=== PATIENT | female | born 1950 | race Caucasian/White ===

== ENCOUNTER 2019-08-30 22:43 | Inpatient (IN) | payer MEDICARE, SELFPAY ==
[~2019-08-30] VITALS: Ht 152.4 cm; Wt 119.8 kg
[2019-08-30 22:43] VITALS: BP 126/87
--- NOTE | 2019-08-30 22:43 | NUR ---
PT BIBA BLS. TAKEN TO BED 9
--- NOTE | 2019-08-30 22:55 | NUR ---
PROPER PPE WORN FOR ALL PT INTERACTION
--- NOTE | 2019-08-30 23:00 | NUR ---
69 YO F BIBA FOR FEVER AND COUGH X2 WEEKS. PT DENIES TAKING ANY MEDICATION FOR FEVER/COUGH. PT DENIES TRAVEL OR CONTACT WITH ANY COVID POSITIVE PATIENTS. DENIES SOB BUT HAS A PRODUCTIVE COUGH WITH YELLOW THICK SECRETIONS. LUNG SOUNDS CLEAR IN BILATERAL UPPER AND MIDDLE BASES, AND DIMINISHED IN BILATERAL LOWER BASES. PT WAS SATING AT 88-90% ON ROOM AIR. PT PLACED ON 3L NC AND IS NOW SATING AT 98%. S1S2 HEARD. BOWEL SOUNDS ARE NORMOACTIVE THROUGHOUT. PT STATES SHE HAS BEEN NAUSEOUS WITH APPETITE CHANGES BUT DENIES V/D. LBM WAS TODAY, SOFT AND FORMED. CAP REFILL <3. TRACE EDEMA IN BILATERAL LOWER EXTREMETIES. PT STATES THAT SHE HAS FELT WEAK LATELY AND HAS FALLEN 4 TIMES IN THE LAST MONTH. PT HAS HAD PAIN THAT COMES AND GOES IN BILATERAL LOWER EXTREMETIES DUE TO RECENT FALLS. PT PLACED ON EVENT CREW TECHNICIAN. SAFETY MEASURES IN PLACE. BED LOCKED AND IN LOWEST POSITION. SIDE RAILS X2. NKA MED HX: DM2, HYPOTHYROIDISM, GALLSTONES MEDS: LEVOTHYROXINE, METFORMIN
--- NOTE | 2019-08-30 23:17 | NUR ---
XR AT BEDSIDE
--- NOTE | 2019-08-30 23:37 | NUR ---
FLU, RSV, COVID SWAB COLLECTED BY BERNARDINO MENDES AND SENT TO LAB
--- NOTE | 2019-08-30 23:45 | NUR ---
EKG PERFORMED AT BEDSIDE.
[2019-08-30 23:49] LABS: APPEARANCE,URINE SL CLOUDY (CLEAR); BLOOD, URINE NEGATIVE (NEGATIVE); COLOR,URINE YELLOW (YELLOW); LEUKOCYTE ESTERASE ,URINE NEGATIVE (NEGATIVE); NITRITE, URINE NEGATIVE (NEGATIVE); UGLUCOSE NEGATIVE (NEGATIVE)
--- NOTE | 2019-08-30 23:50 | NUR ---
PT RESTING COMFORTABLY IN BED. EQUAL RISE AND FALL OF CHEST. CALL LIGHT PLACED AT BEDSIDE.
[2019-08-30 23:51] LABS: BASOPHILS % (AUTO) 0.3 % (0.0-2.0); HEMATOCRIT 35.4 % (36-48); HEMOGLOBIN 11.4 g/dL (12.0-16.0); LYMPHOCYTES # (AUTO) 0.9 K/uL (2.5-16.5); LYMPHOCYTES % (AUTO) 23.1 % (20.5-51.1); MEAN CORPUSCULAR HEMOGLOBIN 27 pg (27-31); MEAN CORPUSCULAR HGB CONC 32 g/dL (33-37); MEAN CORPUSCULAR VOLUME 82.7 fL (80-94); MONOCYTES # (AUTO) 0.2 K/uL (0.8-1.0); MONOCYTES % (AUTO) 5.1 % (1.7-9.3); NEUTROPHILS # (AUTO) 2.8 K/uL (1.8-7.7); NEUTROPHILS % (AUTO) 71.5 % (42.2-75.2); PLATELET COUNT (AUTO) 127 K/uL (140-450); RED BLOOD CELL COUNT(AUTO) 4.28 MIL/uL (4.20-5.40); RED CELL DISTRIBUTION WIDTH 15.8 % (11.6-13.7); WHITE BLOOD COUNT (AUTO) 3.9 K/uL (4.8-10.8)
--- NOTE | 2019-08-30 23:54 | NUR ---
RT AT BEDSIDE COLLECTING ABG
[2019-08-31 00:03] LABS: C-REACTIVE PROTEIN QUANT 2.6 mg/dL (0.0-0.9)
[2019-08-31 00:08] LABS: ALBUMIN 3.4 g/dL (3.4-5.0); ANION GAP 10.3 (8-16); CREATININE 0.9 mg/dL (0.6-1.3); POTASSIUM 3.3 mmol/L (3.5-5.1); TOTAL BILIRUBIN 0.8 mg/dL (0.0-1.0)
[2019-08-31 00:09] LABS: LACTATE DEHYDROGENASE 278 U/L (81-234)
[2019-08-31 00:23] LABS: PROTHROMBIN TIME 9.9 secs (10.8-13.4)
--- NOTE | 2019-08-31 00:27 | NUR ---
ERMD AT BEDSIDE EVALUATING PT
[2019-08-31 00:39] LABS: BILIRUBIN,URINE NEGATIVE (NEGATIVE)
--- NOTE | 2019-08-31 01:24 | NUR ---
PT TAKEN TO CT VIA DARIO WITH RICHI MORGAN AND RN
[2019-08-31 01:27] LABS: RSV NEGATIVE (NEGATIVE)
--- NOTE | 2019-08-31 01:43 | NUR ---
PT RETURN FROM CT
--- NOTE | 2019-08-31 02:38 | NUR ---
PT RESTING IN BED WITH EYES CLOSED. RESPONSIVE TO VERBAL STIMULI. RESPIRATIONS ARE EVEN AND UNLABORED. PT CONTIUES ON MONTIOR. SIDERAIL UP X 1. VSS. BED LOCKED AND IN LOWEST POSITION.
[2019-08-31] MEDS ORDERED: AZITHROMYCIN 500 MG in DEXTROSE 5% 250 ML IV ONE (03:10)
--- NOTE | 2019-08-31 03:10 | NUR ---
PTS NC CAME OFF AND PT O2 SAT DROPPED TO 80%-87%. WENT IN PTS ROOM AND PLACED NC BACK ON AND PT IS NOW SATING AT 97% ON ROOM AIR. PT HAS A FIT OF COUGHING BUT SAYS SHE FEELS OK. PTS FEVER HAS DROPPED FROM 100.6 AT HOME TO 98.7 CURRENTLY. PT CALM AND RESTING IN BED.
[2019-08-31] MEDS ORDERED: cefTRIAXone 1,000 MG VIAL ONE (03:12)
[2019-08-31] MEDS ORDERED: AZITHROMYCIN 500 MG INJ VIAL IV ONE (03:13)
--- NOTE | 2019-08-31 03:40 | NUR ---
RONEN SPOKE TO PTS LISA TO GIVE AN UPDATE. INFORMED THAT PT WILL BE ADMITTED TO [facility] AND NOT TRANSFERRED TO [place] UNTIL COVID 19 RESULTS COME BACK.
[2019-08-31] MEDS ORDERED: HYDROcodone/APAP 7.5/325 MG 1 TAB PO PRN (03:45)
[2019-08-31] MEDS ORDERED: ACETAMINOPHEN 325 MG TAB PO PRN (03:45)
[2019-08-31] MEDS ORDERED: LEVO0.2T5 PO (03:53)
[2019-08-31] MEDS ORDERED: METF-988 PO ×2 (03:53→04:54)
--- NOTE | 2019-08-31 04:00 | NUR ---
LISA PTS - [phone] WILL GIVE CONTACT INFORMATION TO TELE NURSE
[2019-08-31 04:20] VITALS: BP 110/60
--- NOTE | 2019-08-31 04:20 | NUR ---
RECEIVED PT AAOX4 , W/ O2 AT 2 LPM/NC - O2 SAT WNL , / DARIO . AMBULATES TO BED W/ ASSIST . IV SITE INTACT AND PATENT . SAFETY MEASURES IN PLACE . ADMISSION ASSESSMENT DONE , MRSA SPECIMEN SENT TO LAB . POC DISCUSSED AND VERBALIZE UNDERSTANDING - CALL LIGHT WITHIN REACH . ON TELE MONITOR. WILL CONT. TO MONITOR. Addendum: 08/31/19 at 0642 by Kellee Tovar RN PER RADIOLOGIST NO METFORMIN FOR [address] ANGIO CHEST DONE - ALEKSANDRA ALMEIDA
[2019-08-31 04:21] LABS: CHOL/HDL RATIO 2.9 (1-4.5); MAGNESIUM 1.8 mg/dL (1.8-2.4); THYROID STIMULATING HORMONE 7.7 uIU/mL (0.34-3.74)
--- NOTE | 2019-08-31 04:21 | NUR ---
Patient will be admitted to care of [facility]. Admited to TELE. Will go to room 114. Belongings list completed. Report to DOMINICK MENDES.
[2019-08-31] MEDS ORDERED: POTASSIUM CHLORIDE 10 MEQ TABER PO ONE ×2 (04:55→06:07)
[2019-08-31] MEDS ORDERED: DEXTROSE 50% 50 ML SYR IVP PRN (04:55)
[2019-08-31] MEDS: NACL 0.9% 1,000 ML IV SCH (05:00)
--- NOTE | 2019-08-31 06:22 | NUR ---
K DUR TABLETS GIVEN THE ORDER IS 40 MEQ , I GOT 4 TABS FROM [employer] BUT I FORGOT TO INDICATE 4 PIECES INSTEAD I PUT 1 TAB.
[2019-08-31] MEDS: LEVOTHYROXINE 0.1 MG TAB PO SCH (06:23)
--- NOTE | 2019-08-31 07:00 | NUR ---
MADE ROUNDS . NO S/S OF ACUTE DISTRESS NOTED AT THIS TIME. CALL LIGHT WITHIN REACH.
[2019-08-31 07:14] LABS: BASOPHILS % (AUTO) 0.1 % (0.0-2.0); HEMATOCRIT 32.8 % (36-48); HEMOGLOBIN 10.5 g/dL (12.0-16.0); LYMPHOCYTES # (AUTO) 1.2 K/uL (2.5-16.5); LYMPHOCYTES % (AUTO) 36.8 % (20.5-51.1); MEAN CORPUSCULAR HEMOGLOBIN 27 pg (27-31); MEAN CORPUSCULAR HGB CONC 32 g/dL (33-37); MONOCYTES # (AUTO) 0.2 K/uL (0.8-1.0); MONOCYTES % (AUTO) 5.2 % (1.7-9.3); NEUTROPHILS # (AUTO) 1.9 K/uL (1.8-7.7); NEUTROPHILS % (AUTO) 57.9 % (42.2-75.2); PLATELET COUNT (AUTO) 109 K/uL (140-450); RED CELL DISTRIBUTION WIDTH 15.7 % (11.6-13.7); WHITE BLOOD COUNT (AUTO) 3.3 K/uL (4.8-10.8)
--- NOTE | 2019-08-31 07:20 | NUR ---
ENDORSED TO AM SHIFT - PT - STABLE - ENDORSED TO AM SHIFT TO GET THE HGT.
--- NOTE | 2019-08-31 07:20 | NUR ---
RECEIVED REPORT FROM NIGHT NURSE. PATIENT IS AWAKE, ALERT AND ORIENTED X4. NO S/S OF DISTRESS NOTED. IV INTACT AND PATENT TO RIGHT AC. PLANS OF CARE DISCUSSED. O2 ON @ 3L VIA NC. CALL LIGHT WITHIN REACH. SAFETY MEASURES IN PLACE.
[2019-08-31 07:35] LABS: ANION GAP 9.5 (8-16); CARBON DIOXIDE 31.7 mmol/L (21-32); CREATININE 0.9 mg/dL (0.6-1.3); POTASSIUM 3.2 mmol/L (3.5-5.1)
[2019-08-31 08:00] VITALS: BP 122/50
[2019-08-31] MEDS: BLOOD GLUCOSE MONITORING 1 DEV DEV FS SCH ×4 (08:21→20:45)
[2019-08-31] MEDS: AZITHROMYCIN 250 MG TAB PO SCH (08:43)
[2019-08-31] MEDS: ZINC SULF 220 MG CAP PO SCH (08:43)
[2019-08-31] MEDS: ASCORBIC ACID 500 MG TAB PO SCH (08:44)
[2019-08-31] MEDS: FAMOTIDINE 20 MG TAB PO SCH (08:44)
[2019-08-31] MEDS: DOCUSATE SODIUM 100 MG GELCAP PO SCH ×2 (08:58→20:45)
[2019-08-31] MEDS: ENOXAPARIN 40 MG/0.4 ML SYR SUBQ SCH (08:58)
[2019-08-31] MEDS ORDERED: metFORMIN 500 MG TAB PO SCH (09:00)
--- NOTE | 2019-08-31 09:30 | NUR ---
PATIENT ALERT AND ORIENTED X4. NO DISTRESS NOTED. O2 ON 2 3L VIA NC. PT AMBULATORY WITH STEADY GAIT. CALL LIGHT WITHIN REACH.
[2019-08-31] MEDS ORDERED: POTASSIUM CHLORIDE 10 MEQ TABER PO SCH (10:00)
[2019-08-31] MEDS: ONDANSETRON 4 MG/2 ML VIAL IVP PRN ×2 (10:15→10:24)
--- NOTE | 2019-08-31 10:46 | NUR ---
DC PLANNIN YRS OLD FEMALE PATIENT WAS ADMITTED FROM HOME WITH A DX OF PNA, R/O COVID. PATIENT HAS A HX OF DM, HYPOTHYROID , MORBID OBESITY AND SEASONAL ALLERGIES. CXR WAS NEGATIVE FOR ACUTE PATHOLOGY ,CTA OF THE CHEST SHOWED MULTIPLE PUNCTATE GROUND GLASS INFILTRATE IN BILATERAL LOWER LUNGS . COVID TEST AND BLOOD CULTURE PENDING. INFLUENZA A&B NEGATIVE. ADMINISTERED IV ABX ROCEPHIN AND AZITHROMYCIN ,VIT C AND ZINC SUPPLEMENT,AND LOVENOX . CONSULTED WITH PULM/CRITICAL CARE DR ZARATE . DC PLAN FAXED ALL THE CLINICAL TO [facility]. REYNA TO FOLLOW Addendum: 08/31/19 at 1112 by Lyssa Miller CM DC PLANNING: CALLED [facility] [phone] SPOKE WITH GISELL ORELLANA ,NOTIFIED HER PT IS STABLE TO BE TRANSFERRED , PROVIDE HER RESIDENT'S CELL PHONE NUMBER AND PER GISELL SHE RECEIVED ALL THE CLINICALS AND AWARE OF COVID TEST PENDING. SHE WILL DISCUSS WITH TRAFFIC LINE PAINTER AND WILL CALL BACK . REYNA TO FOLLOW Addendum: 08/31/19 at 1326 by Lyssa Miller CM DC PLANNING: RECEIVED A CALL FROM GISELL ORELLANA AT [facility] [phone] STATED SHE SPOKE WITH THE TRAFFIC LINE PAINTER DR ABEL CAN NOT TAKE PATIENT WITH PENDING COVID AND WAITING FOR THE COVID RESULT. PER GISELL PANG WILL APPROVE THE DAY UNTIL WE GET THE COVID TEST RESULT. REYNA TO FOLLOW Addendum: 09/03/19 at 1057 by Lyssa Miller CM DC PLANNING: CALLED [facility] [phone] SPOKE WITH FRANCE ORELLANA UPDATED PT'S CLINICAL STATUS AND THE RESULT OF COVID-19 POSITIVE RESULT AND PT IS STABLE FOR TRANSFER. PER FRANCE SHE WILL WORK ON IT ON [facility] ,PROVIDED THE UNIT NUMBER AND 'S CELL PHONE FOR [facility] TO [facility]. FAXED COVID -19 TEST TO [phone] . REYNA TO FOLLOW
[2019-08-31 12:00] VITALS: BP 114/49
[2019-08-31] MEDS: INSULIN LISPRO SLIDING SCALE 100 UNITS/ML VIAL SUBQ PRN (12:43)
--- NOTE | 2019-08-31 13:00 | NUR ---
ROUNDS MADE. PATIENT ALERT AND ORIENTED X4. NO DISTRESS NOTED. O2 ON 2 3L VIA NC. PT AMBULATORY WITH STEADY GAIT. CALL LIGHT WITHIN REACH.
--- NOTE | 2019-08-31 14:30 | NUR ---
DR. JACOBO MADE AWARE, PATIENT'S RESULT FOR COVID TEST IS NEGATIVE. Addendum: 08/31/19 at 1531 by Renetta Mace RN INCORRECT NOTE ABOVE: PATIENT'S COVID TEST RESULT IS STILL PENDING.
[2019-08-31 16:00] VITALS: BP 136/60
--- NOTE | 2019-08-31 16:29 | NUR ---
08/31/19 RD INITIAL ASSESSMENT COMPLETED PLEASE REFER TO NUTRITION ASSESSMENT UNDER CARE ACTIVITY FOR ESTIMATED NUTRITIONAL NEEDS. 1. CONTINUE CCHO 60GM DIET TOLERATED 2. IF PO INTAKE <75% RECOMMEND GLUCERNA ONCE DAILY 3. RD TO FOLLOW-UP 3-5 DAYS, MODERATE RISK CELESTINA PANDEY, RD
--- NOTE | 2019-08-31 16:30 | NUR ---
PATIENT IS SITTING ON THE CHAIR. ALERT AND ORIENTED X4. DENIES ANY SOB OR DISCOMFORT. CALL LIGHT WITHIN REACH. ABLE TO MAKE NEEDS KNOWN. AMBULATES WITH STEADY GAIT TO THE RESTROOM.
--- NOTE | 2019-08-31 18:31 | NUR ---
PT IS EATING DINNER. NO S/S OF DISTRESS NOTED. AAOX4. NEEDS MET.
--- NOTE | 2019-08-31 19:30 | NUR ---
RECEIVED BEDSIDE REPORT FROM DAY SHIFT NURSE. IV PULLED OUT. WILL INSERT NEW IV. PT BREATHING EVEN AND UNLABORED WITH 3LPM O2 VIA NC. SKIN INTACT, WARM AND DRY TO TOUCH. DENIES PAIN. NO ACUTE DISTRESS NOTED. POC REVIEWED AND DISCUSS WITH PT. PT VERBALIZED UNDERSTANDING. BED IN LOW POSITION, CALL LIGHT WITHIN REACH. WILL CONTINUE TO MONITOR.
[2019-08-31 20:00] VITALS: BP 115/73
--- NOTE | 2019-08-31 20:45 | NUR ---
PT REFUSED COLACE. PT STATED PT HAD 3TIMES BM TODAY. BS CHECKED, 118. NO INSULIN COVERAGE NEEDED.
--- NOTE | 2019-08-31 21:00 | NUR ---
ATTEMPTED 2TIMES OF IV START, NOT SUCCESSFUL. CHARGE NURSE, ALAN STARTED IV ON LAC, 22G. PATENT, INTACT.
[2019-09-01] VITALS: BP 116/59
--- NOTE | 2019-09-01 00:02 | NUR ---
VS WITHIN PT'S BASELINE. WILL CONTINUE TO MONITOR.
[2019-09-01] MEDS: NACL 0.9% 1,000 ML IV SCH ×2 (01:40→18:36)
--- NOTE | 2019-09-01 02:15 | NUR ---
PT SITTING ON THE CHAIR. NO ACUTE DISTRESS NOTED.
[2019-09-01 04:00] VITALS: BP 121/60
--- NOTE | 2019-09-01 04:00 | NUR ---
VS CHECKED. WITHIN PT'S BASELINE. WILL CONTINUE TO MONITOR.
--- NOTE | 2019-09-01 06:30 | NUR ---
GIVEN SYNTHROID MD ORDERED, PT TOLERATED WELL. BS CHECKED, 104. NO INSULIN COVERAGE NEEDED.
[2019-09-01] MEDS: BLOOD GLUCOSE MONITORING 1 DEV DEV FS SCH ×4 (06:32→21:18)
[2019-09-01] MEDS: LEVOTHYROXINE 0.1 MG TAB PO SCH (06:32)
--- NOTE | 2019-09-01 07:07 | NUR ---
RECEIVED BEDSIDE REPORT FROM BIOFUELS PRODUCT MANAGER NURSE MIKALA FOR CONTINUITY OF CARE. PT IS RESTING ON BED AT THIS TIME. RESPIRATION EVEN AND UNLABORED ON 3 LPM VIA NC. NO SIGNS OF DISTRESS NOTED. IV ON LAC 22G, CLEAN AND INTACT, INFUSING NS AT 50 ML/HR. SKIN CLEAN AND DRY. PT IS CONTINENT AND AMBULATORY. TELE MONITOR ATTACHED. ENHANCED PRECAUTION IN PLACE AND SIGN POSTED. SAFETY MEASURES IN PLACE. BED IN LOW POSITION AND CALL LIGHT WITHIN REACH. BED LOCKED.
[2019-09-01 07:48] LABS: BASOPHILS % (AUTO) 0.5 % (0.0-2.0); EOSINOPHILS % (AUTO) 0.3 % (0.0-4.0); HEMATOCRIT 33.7 % (36-48); HEMOGLOBIN 10.7 g/dL (12.0-16.0); LYMPHOCYTES # (AUTO) 1.2 K/uL (2.5-16.5); LYMPHOCYTES % (AUTO) 35.7 % (20.5-51.1); MEAN CORPUSCULAR HEMOGLOBIN 27 pg (27-31); MEAN CORPUSCULAR HGB CONC 32 g/dL (33-37); MEAN CORPUSCULAR VOLUME 84.4 fL (80-94); MONOCYTES # (AUTO) 0.2 K/uL (0.8-1.0); MONOCYTES % (AUTO) 4.7 % (1.7-9.3); NEUTROPHILS % (AUTO) 58.8 % (42.2-75.2); PLATELET COUNT (AUTO) 124 K/uL (140-450); RED BLOOD CELL COUNT(AUTO) 3.99 MIL/uL (4.20-5.40); RED CELL DISTRIBUTION WIDTH 15.9 % (11.6-13.7); WHITE BLOOD COUNT (AUTO) 3.4 K/uL (4.8-10.8)
[2019-09-01 08:00] VITALS: BP 118/61
[2019-09-01 08:06] LABS: ALBUMIN 2.9 g/dL (3.4-5.0); ANION GAP 13.4 (8-16); CARBON DIOXIDE 29.4 mmol/L (21-32); CREATININE 0.8 mg/dL (0.6-1.3); MAGNESIUM 1.8 mg/dL (1.8-2.4); PHOSPHORUS 3.5 mg/dL (2.5-4.9); POTASSIUM 3.8 mmol/L (3.5-5.1); TOTAL BILIRUBIN 0.6 mg/dL (0.0-1.0)
[2019-09-01] MEDS: DOCUSATE SODIUM 100 MG GELCAP PO SCH ×2 (09:00→21:00)
[2019-09-01] MEDS: ENOXAPARIN 40 MG/0.4 ML SYR SUBQ SCH (09:00)
[2019-09-01] MEDS: FAMOTIDINE 20 MG TAB PO SCH (09:36)
[2019-09-01] MEDS: ASCORBIC ACID 500 MG TAB PO SCH (09:36)
[2019-09-01] MEDS: ZINC SULF 220 MG CAP PO SCH (09:36)
[2019-09-01] MEDS: AZITHROMYCIN 250 MG TAB PO SCH (09:37)
--- NOTE | 2019-09-01 09:50 | NUR ---
ADMINISTERED MEDS PER MD ORDER, PT REFUSED COLACE AND ENOXAPARIN SUBQ, MEDS EDUCATION PROVIDED AND PT INSISTED NOT WANTING THEM AND STATED, " I DO NOT NEED STOOL SOFTENER AND I WALK ALOT." ADMINISTERED THE REST OF MEDS, PT TOLERATED MEDS WELL. PT WENT TO BATHROOM AND HAVING BM. NO SIGNS OF DISTRESS NOTED. TELE MONITOR ATTACHED. SAFETY MEASURES IN PLACE. INSTRUCTED PT TO USE THE CALL LIGHT FOR ANY ASSISTANCE AND PT AWARE.
--- NOTE | 2019-09-01 10:16 | NUR ---
Discharge Planning: KOSTA consulted with Charge Nurse Sabra regarding pending COVID results. Test results were not posted. SW will follow up regarding discharge plan.
--- NOTE | 2019-09-01 11:17 | NUR ---
CHECKED BLOOD GLUCOSE AND RECEIVED 153, WILL ADMINISTER COVERAGE WHEN LUNCH ARRIVES. VITAL SIGNS TAKEN. PT AWAKE AND SITTING UP ON CHAIR WATCHING TV. NO SIGNS OF DISTRESS NOTED. TELE MONITOR ATTACHED. SAFETY MEASURES IN PLACE.
[2019-09-01 12:00] VITALS: BP 123/62
[2019-09-01] MEDS: INSULIN LISPRO SLIDING SCALE 100 UNITS/ML VIAL SUBQ PRN (12:29)
--- NOTE | 2019-09-01 12:34 | NUR ---
LUNCH ARRIVES, ADMINISTERED 2 UNITS OF HUMALOG FOR BLOOD GLUCOSE 153, MED ED PROVIDED AND PT SAID OK. PT AWAKE AND WATCHING TV. NO SIGNS OF DISTRESS NOTED. TELE MONITOR ATTACHED. SAFETY MEASURES IN PLACE.
[2019-09-01] MEDS ORDERED: ALBUTEROL HFA MDI 90 MCG/ACTUATION 8 GM INH PRN (12:55)
--- NOTE | 2019-09-01 13:55 | NUR ---
ATTENDED TO PT'S CALL LIGHT AND PT COMPLAINED IV UNCOMFORTABLE. ASSESSED IV SITE AND INFILTRATED, WILL RESTART NEW IV. PT IS TALKING ON HER CELLPHONE AT THIS TIME. NO SIGNS OF DISTRESS NOTED. TELE MONITOR ATTACHED. SAFETY MEASURES IN PLACE.
--- NOTE | 2019-09-01 14:26 | NUR ---
STARTED NEW IV ON LFA 22, PT TOLERATED WELL, CONTINUE INFUSING NS AT 50 ML/ HR. PROVIDED INCENTIVE SPIROMETER AND EDUCATED PT ON HOW TO USE IT AND THE BENEFITS OF USING IT. PT DEMONSTRATED AND ABLE TO USE IT CORRECTLY. ENCOURAGED PT TO USE IT WHEN TOLERATE AND AWAKE, PT VERBALIZED UNDERSTANDING. NO SIGNS OF DISTRESS NOTED. TELE MONITOR ATTACHED. SAFETY MEASURES IN PLACE.
--- NOTE | 2019-09-01 15:40 | NUR ---
RECEIVED CALL FROM [employer] ADVISER GISELL [phone] INQUIRED COVIND 19 RESULT, EXPLAINED THAT COVID IS STILL PENDING. PER GISELL, SHE WILL BE IN OFFICE BY 1900, IF RESULT IS OUT BETWEEN NOW AND 1900, KINDLY CALL AND NOTIFY HER.
--- NOTE | 2019-09-01 15:51 | NUR ---
PT AWAKE AND RESTING ON BED AT THIS TIME. DENIED PAIN, SOB AND DIZZINESS. NO SIGNS OF DISTRESS NOTED. TELE MONITOR ATTACHED. SAFETY MEASURES IN PLACE.
[2019-09-01 16:00] VITALS: BP 119/59
--- NOTE | 2019-09-01 16:28 | NUR ---
CHECKED BLOOD GLUCOSE AND RECEIVED 119, NO COVERAGE NEEDED. PT AWAKE AND TALKING ON HER CELLPHONE AT THIS TIME. NO SIGNS OF DISTRESS NOTED. TELE MONITOR ATTACHED. SAFETY MEASURES IN PLACE.
--- NOTE | 2019-09-01 17:42 | NUR ---
DELIVERED NOVAK TO PT'S ROOM. PT IS SITTING UP ON CHAIR AND TALKING ON HER CELLPHONE. NO SIGNS OF DISTRESS NOTED. TELE MONITOR ATTACHED. SAFETY MEASURES IN PLACE.
--- NOTE | 2019-09-01 19:17 | NUR ---
ENDORSED PT AT BEDSIDE TO CLIN APPLICATION SPECIALIST NURSE FOR CONTINUITY OF CARE. PT IS IN STABLE CONDITION. TELE MONITOR ATTACHED.
--- NOTE | 2019-09-01 19:18 | NUR ---
RECEIVED ENDORSEMENT FROM AM SHIFT RN. PATIENT IS IN BED, ON 3LPM VIA NC. RESPIRATION EVEN AND UNLABORED. NO SOB. IV SITE TO LFA 22 G WITH IVF INFUSING. PENDING TEST RESULT FOR COVID 19. ISOLATION PRECAUTION OBSERVED AT ALL TIMES. PLAN OF CARE WAS DISCUSSED. CALL LIGHT WITHIN REACH. WILL CONTINUE TO MONITOR.
--- NOTE | 2019-09-01 19:59 | NUR ---
PT WAS RESTING COMFORTABLY 96% HR 76 ON RA
[2019-09-01 20:00] VITALS: BP 120/49
--- NOTE | 2019-09-01 21:18 | NUR ---
PATIENT REFUSED COLACE. MED EDUCATION PROVIDED BUT PATIENT STILL REFUSE. WILL CONTINUE TO MONITOR. DENIES PAIN. NO SOB. WILL CONTINUE TO MONITOR.
--- NOTE | 2019-09-01 23:53 | NUR ---
SARA FROM LAB CALLED FOR THE RESULT OF COVID 19 TEST. PATIENT IS POSITIVE FOR COVID [address] FOX. HE SAID OK.
[2019-09-02] VITALS: BP 134/53
--- NOTE | 2019-09-02 02:00 | NUR ---
PATIENT IS RESTING. NO PAIN NOTED. NO SOB. WILL CONTINUE TO MONITOR.
[2019-09-02 04:00] VITALS: BP 143/64
--- NOTE | 2019-09-02 04:00 | NUR ---
V/S TAKEN AND RECORDED. NO SOB. DENIES PAIN. WILL CONTINUE TO MONITOR.
[2019-09-02] MEDS: LEVOTHYROXINE 0.1 MG TAB PO SCH (06:16)
[2019-09-02] MEDS: BLOOD GLUCOSE MONITORING 1 DEV DEV FS SCH ×4 (06:16→20:23)
[2019-09-02 07:02] LABS: EOSINOPHILS % (AUTO) 0.3 % (0.0-4.0); HEMATOCRIT 31.9 % (36-48); HEMOGLOBIN 10.3 g/dL (12.0-16.0); MEAN CORPUSCULAR HEMOGLOBIN 27 pg (27-31); MEAN CORPUSCULAR HGB CONC 32 g/dL (33-37); MEAN CORPUSCULAR VOLUME 83.9 fL (80-94); MONOCYTES # (AUTO) 0.3 K/uL (0.8-1.0); NEUTROPHILS % (AUTO) 60.7 % (42.2-75.2); PLATELET COUNT (AUTO) 127 K/uL (140-450); RED CELL DISTRIBUTION WIDTH 15.8 % (11.6-13.7); WHITE BLOOD COUNT (AUTO) 3.3 K/uL (4.8-10.8)
--- NOTE | 2019-09-02 07:11 | NUR ---
NO ACUTE DISTRESS NOTED. ENDORSED PATIENT TO AM SHIFT RN FOR CONTINUITY OF CARE.
--- NOTE | 2019-09-02 07:12 | NUR ---
RECEIVED ENDORSEMENT FROM EDUCATION REVIEWER RN. PATIENT IS IN BED, ON 2LPM VIA NC. RESPIRATION EVEN AND UNLABORED. NO SOB. IV SITE TO LFA 22 G WITH IVF INFUSING WELL. PATIENT DENIES PAIN. PATIENT ON DROPLET PRECAUTION FOR + COVID. PLAN OF CARE WAS DISCUSSED. PATIENT VERBALIZED UNDERSTANDING.UPDATED BOARD. CALL LIGHT WITHIN REACH. WILL CONTINUE TO MONITOR.
[2019-09-02 07:21] LABS: ALBUMIN 2.7 g/dL (3.4-5.0); ANION GAP 13.5 (8-16); CREATININE 0.8 mg/dL (0.6-1.3); MAGNESIUM 1.8 mg/dL (1.8-2.4); PHOSPHORUS 3.6 mg/dL (2.5-4.9); POTASSIUM 3.5 mmol/L (3.5-5.1); TOTAL BILIRUBIN 0.5 mg/dL (0.0-1.0)
[2019-09-02 08:00] VITALS: BP 139/70
[2019-09-02] MEDS: ENOXAPARIN 40 MG/0.4 ML SYR SUBQ SCH (08:47)
[2019-09-02] MEDS: DOCUSATE SODIUM 100 MG GELCAP PO SCH ×2 (08:47→20:23)
[2019-09-02] MEDS: ZINC SULF 220 MG CAP PO SCH ×2 (08:48→20:25)
[2019-09-02] MEDS: AZITHROMYCIN 250 MG TAB PO SCH (08:48)
[2019-09-02] MEDS: FAMOTIDINE 20 MG TAB PO SCH (08:48)
[2019-09-02] MEDS: ASCORBIC ACID 500 MG TAB PO SCH (08:49)
--- NOTE | 2019-09-02 08:55 | NUR ---
ORDERED MEDICATIONS GIVEN. PATIENT TOLERATED THEM WELL. PATIENT HAS BEEN ON ROOM AIR SINCE 804, O2 SATURATION 93-95%. PATIENT DENIES SOB, NO S/S OF DISTRESS NOTED. PATIENT DENIES PAIN. PATIENT WISHES TO SPEAK TO DOCTOR. WILL PASS ON HER REQUEST. PATIENT CURRENTLY SITTING IN CHAIR BY SIDE OF BED, NO COMPLAINTS AT THIS TIME. CALL LIGHT WITHIN REACH, DROPLET PRECAUTIONS IN PLACE, WILL CONTINUE TO MONITOR PATIENT. Addendum: 09/02/19 at 1309 by Viktor Daley RN PATIENT REFUSED COLACE, STATING SHE IS HAVING REGULAR BM. PATIENT ALSO REFUSED LOVENOX. EXPLAINED TO PATIENT INDICATIONS AND BENEFITS. PATIENT VERBALIZED UNDERSTANDING BUT STILL REITERATED REFUSAL.
--- NOTE | 2019-09-02 09:35 | NUR ---
ARIADNA FROM [facility] CALLED TO GET UPDATE ON PATIENT'S STATUS. UPDATED HER WITH CURRENT INFORMATION, SHE VERBALIZED UNDERSTANDING.
--- NOTE | 2019-09-02 11:40 | NUR ---
BLOOD SUGAR 135, NO COVERAGE NEEDED. DR. HUMMEL IN TO SPEAK TO PATIENT. WILL CONTINUE TO MONITOR PATIENT.
[2019-09-02 12:00] VITALS: BP 134/75
--- NOTE | 2019-09-02 12:45 | NUR ---
PATIENT BACK ON O2 2L VIA NC. PATIENT STATED THAT SHE USES IT PRECAUTION FOR WHEN SHE ATTEMPTS TO SLEEP. O2 SATURATION 97%, NO SOB OR DISTRESS NOTED. WILL CONTINUE TO MONITOR PATIENT.
--- NOTE | 2019-09-02 14:20 | NUR ---
PATIENT CURRENTLY ON RA, SITTING ON SIDE OF BED ON CELL PHONE. O2 SATURATION 95%. NO SOB OR DISTRESS NOTED. PATIENT AFTER REFUSING LOVENOX STATED AGREEABLE TO TAKE XARELTO. FOR METFORMIN SCHEDULED AT 1700, PATIENT STATES IT DEPENDS ON HOW SHE FEELS AND HER BLOOD SUGAR LEVEL. PATIENT HAS NO COMPLAINTS AT THIS TIME. WILL CONTINUE TO MONITOR PATIENT.
[2019-09-02] MEDS: NACL 0.9% 1,000 ML IV SCH (14:25)
[2019-09-02 16:00] VITALS: BP 140/72
[2019-09-02] MEDS: metFORMIN 850 MG TAB PO SCH (17:00)
--- NOTE | 2019-09-02 17:00 | NUR ---
BS 129, NO COVERAGE NEEDED. PATIENT'S BROUGHT IN 2 BIBLES AND NOTEBOOK FOR PATIENT. PATIENT HAS NO COMPLAINTS AT THIS TIME. WILL CONTINUE TO MONITOR PATIENT.
--- NOTE | 2019-09-02 19:24 | NUR ---
REPORT GIVEN TO BATCH TANK CONTROLLER NURSE AT BEDSIDE FOR CONTINUITY OF CARE. PATIENT RESTING IN BED. NO SOB OR DISTRESS NOTED.
--- NOTE | 2019-09-02 19:30 | NUR ---
RECEIVED REPORT FORM [place] RN DAYSHIFT NURSE AT BEDSIDE FOR CONTINUITY OF CARE, PT IN STABLE CONDITION.
[2019-09-02 20:00] VITALS: BP 150/56
--- NOTE | 2019-09-02 20:00 | NUR ---
PT SITTING UP IN BED SHE IS AOX4 NO S/S OF PAIN OR DISTRESS NOTED. T 97.9 P 70 R 20 B/P 150/56 02 94% ON ROOM AIR. ALL DROPLET PRECAUTIONS IN PLACE.
--- NOTE | 2019-09-02 20:45 | NUR ---
PT IS AOX4 HER RESPIRATIONS ARE EVEN AND UNLABORED ON ROOM AIR. SHE HAS A LFA 22GUAGE INTACT AND ASYMPTOMATIC RUNNING NORMAL SALINE AT 50MLS/HR. PT HAS NO C/O OF PAIN OR DISTRESS NOTED. SHE HAS REQUESTED TO SPEAK WITH MD REGARDING THE PLAN OF ACTION FOR HER. MD WAS CALLED AND HE SAID THAT HE WILL VISIT WITH HER LATER REGARDING HER CONCERNS. ALL DROPLET PRECAUTIONS IN PLACE.
--- NOTE | 2019-09-02 21:30 | NUR ---
MD FOX ORDERED XARELTO DUE TO MT NON COMPLIANCE WITH LOVENOX SHOT. XARELTO SCHEDULED FOR 0900 TOMORROW AM. WILL UPDATE AND ENDORSE NEW ORDER TO AM SHIFT.
--- NOTE | 2019-09-02 22:18 | NUR ---
MD FOX SPOKE WITH PT REGARDING CONCERNS FOR THE PLAN OF ACTION FOR HER CARE.
[2019-09-03] VITALS: BP 148/71
--- NOTE | 2019-09-03 00:35 | NUR ---
PT SITTING UP IN BED , PT C/O MODERATE PAIN IN HER HIP, SHE WAS GIVEN PO/PRN NORCO V/S FOLLOWS: T 98.0 P 67 R 20 B/P 148/71 02 97% WITH 2 LITERS VIA N/C. WILL MONITOR FOR PAIN REIELF. ALL FALLS AND UNIVERSAL PRECAUTIONS IN PLACE.
[2019-09-03 04:00] VITALS: BP 149/63
--- NOTE | 2019-09-03 04:00 | NUR ---
PT IN BED ASLEEP WITH 2 LITERS VIA N/C. PT HAS IV SITE INTACT AND ASYMPTOMATIC N/S RUNNING AT 50MLS/HR. PT DENIES ANY PAIN AND HAS NO S/S OF DISTRESS. T 98.5 P 56 R 20 B/P 149/63 02 98% WITH 2 LITERS VIA N/C. ALL FALLS AND DROPLET PRECAUTIONS IN PLACE.
--- NOTE | 2019-09-03 06:40 | NUR ---
FINGERSTICK DONE AND IS 124, NO HUMALOG COVERAGE NEEDED. PT GIVEN ORDERED SYNTHROID. SHE IS SITTING UP IN CHAIR WITH 2 LITERS RUNNING NO S/S OF PAIN OR DISTRESS NOTED.
[2019-09-03] MEDS: LEVOTHYROXINE 0.1 MG TAB PO SCH (07:02)
[2019-09-03] MEDS: BLOOD GLUCOSE MONITORING 1 DEV DEV FS SCH ×3 (07:03→16:25)
--- NOTE | 2019-09-03 07:10 | NUR ---
RECEIVED REPORT FROM NIGHT NURSE PT IS ON 2LPM OXYGEN VIA NC, AAOX4, NO DISTRESS NOTED AND DENIES PAIN. SAFETY MEASURES IN PLACE, CALL LIGHT WITHIN REACH. WILL CONTINUE TO MONITOR.
[2019-09-03 07:25] LABS: BASOPHILS % (AUTO) 0.8 % (0.0-2.0); EOSINOPHILS % (AUTO) 0.7 % (0.0-4.0); HEMATOCRIT 35.7 % (36-48); HEMOGLOBIN 11.4 g/dL (12.0-16.0); LYMPHOCYTES # (AUTO) 1.1 K/uL (2.5-16.5); LYMPHOCYTES % (AUTO) 39.8 % (20.5-51.1); MEAN CORPUSCULAR HEMOGLOBIN 27 pg (27-31); MEAN CORPUSCULAR HGB CONC 32 g/dL (33-37); MEAN CORPUSCULAR VOLUME 83.6 fL (80-94); MONOCYTES # (AUTO) 0.2 K/uL (0.8-1.0); MONOCYTES % (AUTO) 7.4 % (1.7-9.3); NEUTROPHILS # (AUTO) 1.5 K/uL (1.8-7.7); NEUTROPHILS % (AUTO) 51.3 % (42.2-75.2); PLATELET COUNT (AUTO) 155 K/uL (140-450); RED BLOOD CELL COUNT(AUTO) 4.27 MIL/uL (4.20-5.40); RED CELL DISTRIBUTION WIDTH 16.2 % (11.6-13.7); WHITE BLOOD COUNT (AUTO) 2.9 K/uL (4.8-10.8)
[2019-09-03 07:49] LABS: ALBUMIN 3.1 g/dL (3.4-5.0); ANION GAP 12.3 (8-16); CARBON DIOXIDE 30.1 mmol/L (21-32); CREATININE 0.7 mg/dL (0.6-1.3); PHOSPHORUS 3.5 mg/dL (2.5-4.9); POTASSIUM 3.4 mmol/L (3.5-5.1); TOTAL BILIRUBIN 0.7 mg/dL (0.0-1.0)
--- NOTE | 2019-09-03 07:58 | NUR ---
PT I9S RESTING COMFORTABLY ON NC
[2019-09-03 08:00] VITALS: BP 139/67
[2019-09-03] MEDS: metFORMIN 850 MG TAB PO SCH ×4 (08:00→16:50)
--- NOTE | 2019-09-03 08:00 | NUR ---
MEDICATIONS DUE GIVEN PT IS SITTING NO DISTRESS NOTED DENIES PAIN. ENCOURAGED PT TO AMBULATE IN THE ROOM ON ROOM AIR. SAFETY MEASURES WITHIN REACH CALL LIGHT WITHIN REACH. WILL CONTINUE TO MONITOR.
[2019-09-03] MEDS: ASCORBIC ACID 500 MG TAB PO SCH (08:16)
[2019-09-03] MEDS: FAMOTIDINE 20 MG TAB PO SCH (08:17)
[2019-09-03] MEDS: ZINC SULF 220 MG CAP PO SCH (08:18)
[2019-09-03] MEDS: DOCUSATE SODIUM 100 MG GELCAP PO SCH (08:27)
[2019-09-03] MEDS ORDERED: RIVAROXABAN 15 MG TAB PO SCH ×2 (09:00→16:00)
--- NOTE | 2019-09-03 10:00 | NUR ---
INFORMED PT THAT SHE IS GOING TO BE TRANSFERRED TO [place]. PT VERBALIZES UNDERSTANDING.
--- NOTE | 2019-09-03 10:16 | NUR ---
CHEMISTRY INTERN NOTE: Basic Screen: Yes High Risk DC Screen [place]: LISA Gilbert Relationship: Prior ADL Independent Current Home Health Name/Tel: N/A Current DME/02 Name/Tel: N/A Current Hospice Name/Tel: N/A Current Dialysis Name/Tel: N/A Healthcare Decision Maker: Patient Discipline: Case Mgt/Social Svcs Tentative Discharge Plan/Destination: Other Will require assistance post discharge: No Referred to Manager Intern: No Tentative Discharge Plan Summary: PATIENT IS A 69-YEAR-OLD FEMALE ADMITTED FOR PNEUMONIA AND R/O COVID. PATIENT WAS ADMITTED FROM HOME WHERE SHE LIVES WITH HER . DUE TO PATIENT'S HEALTH CONDITION SW WAS UNABLE TO MEET WITH PATIENT AT BEDSIDE. KOSTA CONSULTED WITH DR. JACOBO WHO STATED THAT PATIENT WAS STABLE AND NO SOCIAL NEEDS WERE IDENTIFIED. SW WILL MAKE HIMSELF AVAILABLE IF SOCIAL ISSUES ARISE. [facility] Signature: MIRNA MOORE Date: September 03, 2019 Time: 10:15
[2019-09-03] MEDS ORDERED: ASPI-1822 PO (11:10)
[2019-09-03 12:00] VITALS: BP 137/62
[2019-09-03] MEDS: NACL 0.9% 1,000 ML IV SCH (15:15)
[2019-09-03] MEDS ORDERED: RIVAROXABAN 10 MG TAB PO SCH (17:00)
--- NOTE | 2019-09-03 19:20 | NUR ---
DISCHARGED INSTRUCTION PROVIDED TO PT AT BEDSIDE, EDUCATED PT TO FOLLOW UP WITH MD AFTER DISCHARGE, DISEASE MANAGEMENT, MEDICATION REGIMENS, SIDE EFFECT AND SEEK MEDICAL HELP IN CASE OF MEDICAL EMERGENCY. ANSWERS ALL PT QUESTIONS AND PT SAID OK. REMOVED ALL ID BANDS. NO BLEEDING ON IV SITES. PT IS CHANGED INTO HOME CLOTHES RETURNED ALL HER BELONGINGS. ESCORTED TO [facility]. PT IS GOING TO BE TRANSFERRED TO [facility]. PT IS STABLE.
--- NOTE | 2019-09-03 20:08 | NUR ---
REPORT GIVEN TO RECEIVING VAUGHN CUNNINGHAM AT #[phone].
== END 2019-09-03 19:20 | disposition short-term general hospital (02) | DRG 177 ==
LOC: EEVIPCON 22:43 → MED 22:43 → MTU 08-31 03:51
PROVIDERS: ADMIT General Practice; ATTEND General Practice
DX: U07.1 COVID-19 (principal); J12.89 Other viral pneumonia; J96.01 Acute respiratory failure with hypoxia; Z68.43 Body mass index [BMI] 50.0-59.9, adult; D68.69 Other thrombophilia; E87.6 Hypokalemia; E66.01 Morbid (severe) obesity due to excess calories; Z71.3 Dietary counseling and surveillance; E03.9 Hypothyroidism, unspecified; E66.9 Obesity, unspecified; K80.20 Calculus of gallbladder without cholecystitis without obstruction; Z90.710 Acquired absence of both cervix and uterus; E11.69 Type 2 diabetes mellitus with other specified complication; J30.2 Other seasonal allergic rhinitis; Z91.19 Patient's noncompliance with other medical treatment and regimen
CPT/HCPCS: 36415; 36600; 71045; 71275; 80048; 80053; 81003; 82550; 82728; 82803; 82948; 83036; 83605; 83615; 83690; 83735; 83880; 84100; 84443; 84484; 85025; 85379; 85384; 85610; 85651; 85730; 86140; 87040; 87081; 87086; 87420; 87804; 93005; 96365; 96375; 99285; J0456; J0696; J1650; J2405; J7030; J7060; Q0092; Q9967